=== PATIENT | male | born 1985 | race African-American/Black ===

== ENCOUNTER 2022-05-25 15:43 | Emergency (ER) | payer OTHER, SELFPAY ==
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
[2022-05-25 15:55] VITALS: BP 163/91; PULSE 59; RESP 16; TEMP 36.9; O2SAT 96
== END 2022-05-25 16:26 | disposition home or self-care (01) ==
PROVIDERS: Emergency Provider Emergency Medicine
DX: S39.92XA Unspecified injury of lower back, initial encounter (principal); V49.40XA Driver injured in collision with unspecified motor vehicles in traffic accident, initial encounter
CPT/HCPCS: 99282